=== PATIENT | male | born 1950 | race Two or more races ===

== ENCOUNTER 2020-10-29 11:21 | Emergency (ER) | payer OTHER ==
[~2020-10-29] VITALS: Ht 180.3 cm; Wt 117.0 kg
[2020-10-29] MEDS ORDERED: GRALISE600 MG (11:51)
[2020-10-29] MEDS ORDERED: DILTIAZEM ER300 MG (11:51)
[2020-10-29] MEDS ORDERED: HYDROCHLOROTHIA25 MG (11:52)
[2020-10-29] MEDS ORDERED: COZAAR100 MG (11:52)
[2020-10-29] MEDS ORDERED: HYDRALAZINE HC100 MG (11:52)
[2020-10-29] MEDS ORDERED: METFORMIN HCL500 M3 (11:53)
[2020-10-29] MEDS ORDERED: LIPITOR20 MG (11:53)
== END 2020-10-29 15:56 | disposition home or self-care (01) ==
LOC: ER 11:21
DX: N13.39 Other hydronephrosis (principal); M54.5 Low back pain; R30.0 Dysuria